=== PATIENT | female | born 1945 | race Caucasian/White ===

== ENCOUNTER 2018-03-22 10:42 | Outpatient (CLI) | payer MEDICARE | END 2018-03-22 10:43 | disposition home or self-care (01) | LOC: BICMAMMO 10:42 | PROVIDERS: ATTEND Internal Medicine | DX: Z12.31 Encounter for screening mammogram for malignant neoplasm of breast (principal); Z80.3 Family history of malignant neoplasm of breast; Z85.820 Personal history of malignant melanoma of skin | CPT/HCPCS: 77063; 77067 ==

== ENCOUNTER 2018-04-24 13:05 | Outpatient (CLI) | payer MEDICARE ==
--- NOTE | 2018-04-24 14:59 | RAD ---
PA AND LATERAL CHEST: HISTORY: A 62-year-old female with cough for several weeks. Smoking history. COMPARISON: 08/28/2007 FINDINGS: Bilateral breast augmentation prostheses. Heart size is within normal limits. Lungs are clear. IMPRESSION: 1. No acute intrathoracic disease. 2. Bilateral breast augmentation prostheses. 3. Atherosclerosis of the aorta. 4. No evidence for pneumonia. POS: [facility]
== END 2018-04-24 13:06 | disposition home or self-care (01) ==
LOC: BICRAD 13:05
PROVIDERS: ATTEND Internal Medicine
DX: R05 Cough (principal); J44.9 Chronic obstructive pulmonary disease, unspecified; I70.0 Atherosclerosis of aorta; Z98.82 Breast implant status
CPT/HCPCS: 71046